=== PATIENT | male | born 1990 | race Hispanic/Latino ===

== ENCOUNTER 2019-08-10 18:39 | Emergency (ER) | payer SELFPAY ==
[2019-08-10] MEDS ORDERED: Ketorolac Tromethamine 30 MG/ML VIAL ONE (19:55)
[2019-08-10 20:15] LABS: Bacteria/HPF None Seen HPF (None Seen); Bilirubin Negative (Negative); Blood, Urine Negative (Negative); Clarity Clear (Clear); Glucose, Urine (Dipstick) Normal (Negative); Leukocyte 25 Leu/uL (Negative); Nitrite Negative (Negative); Protein, Urine (Dipstick) Negative (Neg-Trace); RBC/HPF 0-3 HPF (0-3); Squamous Epithelial None Seen HPF (0-3); Urobilinogen Normal mg/dL (Less than 2)
--- NOTE | 2019-08-10 21:04 | ULT ---
US Testicular W Doppler History: Pain Comparison: None. Findings: Real-time grayscale, color, and spectral analysis of the testicles was performed. Right testicular echotexture and vascularity is normal. No mass. Small right epididymal cyst. Left testicle is hyperemic with the left epididymis enlarged and hyperemic. Asymmetric increased vasc ularity of the left testicle and epididymis. Small reactive left hydrocele. Impression: Left epididymoorchitis.
== END 2019-08-10 21:58 | disposition home or self-care (01) ==
LOC: ERS 18:39
DX: N45.3 Epididymo-orchitis (principal); Z87.891 Personal history of nicotine dependence
CPT/HCPCS: 76870; 81001; 93976; 96361; 96374; J1885